=== PATIENT | female | born 1960 | race Two or more races ===

== ENCOUNTER 2018-11-08 15:15 | Emergency (ER) | payer SELFPAY ==
[~2018-11-08] VITALS: Ht 157.5 cm; Wt 65.3 kg
[2018-11-08] MEDS ORDERED: IV NORMAL SALINE 1000ML BAG 1,000 ML IV SCH (16:01)
[2018-11-08] MEDS ORDERED: DIPHTH,PERTUSS(ACELL),TET TOX 0.5 ML DISP.SYRIN. VAX IM ONE (16:15)
[2018-11-08] MEDS ORDERED: fentaNYL PF VIAL 100 MCG/2 ML VIAL IV ONE (16:15)
--- NOTE | 2018-11-08 16:57 | RAD ---
CT HEAD AND CERVICAL SPINE WO Indication: FALL L NECK PAIN NO PREV Exposure: One or more of the following individualized dose reduction techniques were utilized for this examination: 1. Automated exposure control 2. Adjustment of the mA and/or kV according to patient size 3. Use of iterative reconstruction technique. Technique: Standard imaging without intravenous contrast. CT head No evidence of acute intracranial hemorrhage, mass effect, midline shift or abnormal extra-axial fluid collection. Symmetric basal ganglia calcifications are noted bilaterally. Hypoattenuation of the right frontal lobe, with ex vacuo dilatation of the frontal horn right lateral ventricle, likely due to chronic encephalomalacia. There is an overlying craniectomy defect of the right frontal bone. Mild generalized atrophy. The left orbit is small and dense with calcification. No large scalp hematoma is identified. Partially visualized sinuses are clear. No evidence of depressed skull fracture. IMPRESSION: 1. Chronic findings at the right frontal lobe, likely due to old encephalomalacia or infarction. Note there is evidence of surgical changes in this area with overlying craniectomy defect. 2. No evidence of acute intracranial hemorrhage. Cervical spine Ring of C1 is intact. Cervico-occipital junction is intact. C1-C2 appear symmetric. No evidence of perched or locked facet joint. Vertebral body height is maintained as is alignment. No significant high-grade central osseous spinal stenosis. No prevertebral soft tissue swelling or hematoma. No evidence of acute fracture. Lung apices are clear. Thyroid is grossly unremarkable. IMPRESSION: No evidence of acute fracture or traumatic subluxation. Electronically signed by: Naman Pryor MD (11/08/2018 4:54 PM) [facility]
--- NOTE | 2018-11-08 17:44 | PHYS DOC ---
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 Patient states she had a fall from treadmill 5 days ago and complaining of left shoulder, left lower chest wall, headache, bilateral knees loss of consciousness. Patient states the pain getting worse with movement and activity and rated her pain as a severe pain. Patient did not take pain medication except for [id number] Advil. Patient denies shortness of breath, fever and chills, focal neuro deficit, blurred vision and nausea and vomiting. Patient is visiting her sister from [place] for the last 1 month. Patient is not up-to-date with tetanus immunization. Review of Systems Review of Systems Constitutional: Denies fever or chills [] Eyes: Denies change in visual acuity, redness, or eye pain [] HENT: Denies nasal congestion or sore throat [] Respiratory: Denies cough or shortness of breath [] Cardiovascular: No additional information not addressed in HPI [] GI: Denies abdominal pain, nausea, vomiting, bloody stools or diarrhea [] : Denies dysuria or hematuria [] Musculoskeletal: Denies back pain, reports joint pain [] Integument: Denies rash or skin lesions [] Neurologic: Reports headache, denies focal weakness or sensory changes [] Endocrine: Denies polyuria or polydipsia [] All other systems were reviewed and found to be within normal limits, except as documented in this note. Current Medications Current Medications Current Medications Medications (Trade) Dose Ordered Sig/[facility] Start Time Stop Time Status Last Admin Dose Admin Acetaminophen/ Hydrocodone Bitart (Lortab 7.5/325) 1 tab 1X ONCE 11/08/18 18:00 11/08/18 18:01 DC 11/08/18 17:55 1 TAB Diphtheria/ Tetanus/Acell Pertussis (Boostrix) 0.5 ml ONCE ONCE 11/08/18 16:15 11/08/18 16:16 DC 11/08/18 16:25 0.5 ML Fentanyl Citrate (Fentanyl 2ml Vial) 50 mcg 1X ONCE 11/08/18 16:15 11/08/18 16:16 DC Sodium Chloride 1,000 ml @ 1,000 mls/hr Q1H 11/08/18 16:01 11/08/18 17:00 DC Allergies Allergies Allergies Coded Allergies Type Severity Reaction Last Updated Verified No Known Drug Allergies 11/08/18 No Physical Exam Physical Exam Constitutional: Well developed, well nourished, mild distress, non-toxic appear ance. [] HENT: Normocephalic, forehead contusion, oropharynx moist. Eyes: Left artificial eye Neck: Normal range of motion, no tenderness, supple, no stridor. [] Cardiovascular: left lower chest wall contusion and mild ecchymosis,Heart rate regular rhythm, no murmur [] Lungs & Thorax: Bilateral breath sounds clear to auscultation [] Abdomen: Bowel sounds normal, soft, no tenderness, no masses, no pulsatile masses. [] Skin: Warm, dry, no erythema, no rash. [] Back: No tenderness, no CVA tenderness. [] Extremities: Large ecchymosis in left upper arm with tenderness and painful r marquise of motion of left upper extremity, bilateral knee contusion and left knee abrasion. Neurologic: Alert and oriented X 3, normal motor function, normal sensory function, no focal deficits noted. [] Psychologic: Affect normal, judgement normal, mood normal. [] Current Patient Data Vital Signs Vital Signs Date Time Temp Pulse Resp B/P (MAP) Pulse Ox O2 Delivery O2 Flow Rate FiO2 11/08/18 18:00 72 104/62 (76) 95 Room Air 11/08/18 17:55 12 11/08/18 15:25 97.8 97.8 EKG EKG EKG interpreted by me. EKG at 1522 showed normal sinus rhythm at rate of 81, no acute ST and T-wave abnormalities, normal [place] and QT intervals. Radiology/Procedures Radiology/Procedures [] Course & Med Decision Making Course & Med Decision Making Pertinent Imaging studies reviewed. (See chart for details) Evaluation of patient in ER showed 57-year-old female patient with a fall 4 days ago and complaining of pain in her head and face and left shoulder and chest wall and bilateral knees. Patient was very hard stick with several tries did not have labs or IV line access. Patient treated with oral pain medication and felt better. Patient did not want to have her try for IV line and getting labs. Patient had left humeral head nondisplaced fracture. Shoulder immobilizer was placed. She was advised to follow with degreasing solution reclaimer orthopedic physician. discharge: I've spoken with the patient and/or caregivers. I've explained the patient's condition, diagnosis and treatment plan based on information available to me at this time. I've answered the patient's and/or caregivers questions and addressed any concerns. The patient and/or caregivers have a good understanding the patient's diagnosis, condition and treatment plan as can be expected at this point. Vital signs have been stabilized. The patient's condition is stable for discharge from the emergency department. The patient will pursue further outpatient evaluation with her primary care provider or other designated consulting physician as outlined in the discharge instructions. Patient and/or caregivers are agreeable to this plan of care and follow-up instructions have been explained in detail. The patient and/or caregivers have received these instructions in written format and expressed understanding of these discharge instructions. The patient and her caregivers are aware that if any significant change in condition or worsening of symptoms should prompt him to immediately return to this of the closest emergency department. If an emergent department is not readily available I would encourage him to call 911. Shana Disclaimer Dragon Disclaimer This electronic medical record was generated, in whole or in part, using a voice recognition dictation system. Departure Departure Impression: Primary Impression: Closed fracture of head of left humerus Additional Impressions: Chest wall contusion Contusion of knee Facial contusion Fall at home Disposition: 01 HOME, SELF-CARE (1800) Condition: IMPROVED Referrals: NO PCP (PCP) YADI MACIAS II, MD Patient Instructions: Chest Contusion, Contusion, Fall Prevention and Home Safety, Humerus Fracture, Treated with Immobilization, [id number] Additional Instructions: Drink plenty of liquids Follow-up with your primary care physician in 3-5 days Return to ER if not getting better Apply Ice on the affected area Follow-up with degreasing solution reclaimer orthopedic physician in 2 or 3 days Scripts Hydrocodone/Apap 5-325 (NORCO 5-325 TABLET) 1 Each Tablet 1 TAB PO PRN Q6HRS PRN for PAIN, #30 TAB 0 Refills Prov: SALLY TOLEDO MD 11/08/18 Problem Qualifiers Primary Impression: Closed fracture of head of left humerus Encounter type: subsequent encounter Fracture healing: with routine healing Qualified Codes: S42.292D - Other displaced fracture of upper end of left humerus, subsequent encounter for fracture with routine healing Additional Impressions: Chest wall contusion Encounter type: initial encounter Laterality: left Qualified Codes: S20.212A - Contusion of left front wall of thorax, initial encounter Contusion of knee Encounter type: subsequent encounter Laterality: unspecified laterality Qualified Codes: S80.00XD - Contusion of unspecified knee, subsequent encounter Facial contusion Encounter type: subsequent encounter Qualified Codes: S00.83XD - Contusion of other part of head, subsequent encounter Fall at home Encounter type: subsequent encounter Qualified Codes: W19.XXXD - Unspecified fall, subsequent encounter; Y92.009 - Unspecified place in unspecified non-institutional (private) residence as the place of occurrence of the external cause SALLY TOLEDO MD Nov 08, 2018 17:44
[2018-11-08] MEDS ORDERED: HYDR-3164 PO (17:59)
[2018-11-08 18:00] VITALS: BP 104/62
[2018-11-08] MEDS ORDERED: HYDROcodone/APAP 7.5/325MG 1 TAB TABLET PO ONE (18:00)
--- NOTE | 2018-11-09 06:14 | EKG ---
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
--- NOTE | 2018-11-09 08:26 | RAD ---
Indications: Fall. Unable to abduct arm. Limited ability to supinate and pronate hand. Left shoulder pain. Left rib pain. Bilateral knee pain. THREE-VIEW LEFT SHOULDER STUDY: There is a nondisplaced fracture of the proximal metaphysis of the left humerus. The glenohumeral joint is normally aligned. No AC joint separation is seen. No lytic process is evident. IMPRESSION: Posttraumatic fracture of the proximal left humerus. PORTABLE AP UPRIGHT CHEST X-RAY AND 2 VIEW LEFT RIB DETAIL SERIES: No acute left rib fracture is evident. Chest x-ray demonstrates moderate elevation of the left hemidiaphragm up to the level just below the left hilum. There is left lung base infiltrate which most likely represents atelectasis or chronic scarring given the elevation of the left hemidiaphragm. No acute lung infiltrate is seen on the right side. No pneumothorax or effusion is seen. The heart size and mediastinum and pulmonary vasculature are unremarkable. IMPRESSION: No acute left rib fracture. Moderate elevation of the left hemidiaphragm with associated left lung base atelectasis or chronic scarring. There is mild gaseous distention of the stomach underneath the left hemidiaphragm. THREE-VIEW RIGHT KNEE STUDY: No acute fracture or dislocation or lytic process is seen. 3 VIEW LEFT KNEE STUDY: No acute fracture or dislocation or lytic process is seen. IMPRESSION: No acute fracture of either knee. Electronically signed by: Garfield Garg MD (11/09/2018 8:23 AM) [place] [id number]
== END 2018-11-08 18:03 | disposition home or self-care (01) ==
LOC: ER 15:15
DX: S42.292A Other displaced fracture of upper end of left humerus, initial encounter for closed fracture (principal); S20.212A Contusion of left front wall of thorax, initial encounter; S80.02XA Contusion of left knee, initial encounter; S80.01XA Contusion of right knee, initial encounter; S06.899A Other specified intracranial injury with loss of consciousness of unspecified duration, initial encounter; S00.83XA Contusion of other part of head, initial encounter; E11.9 Type 2 diabetes mellitus without complications; W18.39XA Other fall on same level, initial encounter; Y93.89 Activity, other specified; Y92.099 Unspecified place in other non-institutional residence as the place of occurrence of the external cause; Y99.8 Other external cause status
CPT/HCPCS: 29105; 70450; 71101; 72125; 73030; 73562; 90471; 90715; 93005; 99284-25